=== PATIENT | female | born 1990 | race Caucasian/White ===

== ENCOUNTER 2020-12-30 09:10 | Emergency (ER) | payer OTHER ==
[~2020-12-30] VITALS: Ht 162.6 cm; Wt 56.8 kg
[~2020-12-30 09:10] MED LIST: NOCURR
[2020-12-30] MEDS ORDERED: BACITRACIN 0.9 GM PACKET OINTMENT TP ONE (09:30)
[2020-12-30] MEDS ORDERED: LIDOCAINE 1%/EPI 1:200,000/PF 30 ML VIAL SQ ONE (09:30)
[2020-12-30] MEDS ORDERED: PERTUSS(ACELL),DIPH,TET VAC/PF 0.5 ML SYRINGE IM. ONE (09:30)
[2020-12-30] MEDS ORDERED: ACETAMINOPHEN 500 MG TABLET PO ONE (09:30)
[2020-12-30] MEDS ORDERED: ONDANSETRON HCL 4 MG/2 ML VIAL IVP ONE (09:45)
[2020-12-30] MEDS ORDERED: SODIUM CHLORIDE 0.9% 1,000 ML IV ONE (09:45)
[2020-12-30] MEDS ORDERED: AMOX TR/POT CLAV 875 MG/125 MG TABLET PO ONE (09:45)
[2020-12-30] MEDS ORDERED: KETOROLAC TROMETHAMINE 30 MG/ML VIAL IVP ONE ×2 (10:15→10:45)
[2020-12-30 11:45] VITALS: BP 121/84
== END 2020-12-30 12:08 | disposition home or self-care (01) ==
LOC: EMS 09:10
DX: S51.012A Laceration without foreign body of left elbow, initial encounter (principal); S91.312A Laceration without foreign body, left foot, initial encounter; W54.0XXA Bitten by dog, initial encounter; Y93.89 Activity, other specified; Y92.89 Other specified places as the place of occurrence of the external cause; Y99.8 Other external cause status
CPT/HCPCS: 73080; 73630; 81025; 90471; 90715; 96361; 96374; 96375; 99284; J1885; J2405; J3490; J7030